=== PATIENT | female | born 1930 | race Caucasian/White ===

== ENCOUNTER 2017-10-21 19:04 | Inpatient (IN) | payer MEDICARE, MEDICAID ==
[~2017-10-21] VITALS: Ht 157.5 cm; Wt 68.0 kg
[~2017-10-21 19:04] MED LIST: ACET100V5 PO; ACID1TAB4 PO; Acetaminophen PO; CRAN450T9 PO; Docusate Sodium PO; FERR325T28 PO; Folic Acid PO; LEVO500T2 PO; MAGN400O6 PO; MENT71OI TOP; METO25TA6 PO; METR500T PO; MULT1TAB73 PO; NA P133E RC; ONDA4TAB5 PO; PANT40TA2 PO; POTA-10 PO; SERT50TA PO; TRAZ-144 PO
[2017-10-21 20:20] LABS: BASOPHILS # (AUTO) 0.1 K/uL (0.0-8.0); BASOPHILS % (AUTO) 0.5 % (0.0-2.0); EOSINOPHILS # (AUTO) 0.1 K/uL (0.0-0.7); EOSINOPHILS % (AUTO) 0.8 % (0.0-7.0); HEMATOCRIT 35.9 % (31.2-41.9); HEMOGLOBIN 11.9 g/dL (10.9-14.3); LYMPHOCYTES # (AUTO) 1.4 K/uL (20.0-40.0); LYMPHOCYTES % (AUTO) 9.1 % (20.5-51.5); MEAN CORPUSCULAR HEMOGLOBIN 25.6 uug (24.7-32.8); MEAN CORPUSCULAR HGB CONC 33 g/dL (32.3-35.6); MEAN CORPUSCULAR VOLUME 77.1 fL (75.5-95.3); MONOCYTES # (AUTO) 0.6 K/uL (2.0-10.0); MONOCYTES % (AUTO) 4.3 % (0.0-11.0); NEUTROPHILS # (AUTO) 12.8 K/uL (1.8-8.9); NEUTROPHILS % (AUTO) 85.3 % (38.5-71.5); PLATELET COUNT (AUTO) 168 K/uL (179-408); RED BLOOD CELL COUNT(AUTO) 4.66 MIL/uL (3.63-4.92)
[2017-10-21 20:41] LABS: ALANINE AMINOTRANSFERASE 11 U/L (14-59); ALKALINE PHOSPHATASE 121 U/L (50-136); ASPARTATE AMINOTRANSFERASE 15 U/L (15-37); BILIRUBIN,TOTAL 0.4 mg/dL (0.2-1.0); CARBON DIOXIDE 26 mmol/L (21-32); CHLORIDE 101 mmol/L (98-107); CREATININE 1.2 mg/dL (0.6-1.3); GLUCOSE 132 mg/dL (74-106); POTASSIUM 3.6 mmol/L (3.5-5.1); TOTAL PROTEIN, SERUM 6.7 g/dL (6.4-8.2)
[2017-10-21 20:50] LABS: UREA NITROGEN, BLOOD 7 mg/dL (7-18)
[2017-10-21] MEDS ORDERED: DOCU100C36 PO (21:00)
[2017-10-21] MEDS ORDERED: HYOS0.1273 PO (21:00)
[2017-10-21] MEDS ORDERED: AMLO5TAB2 PO (21:00)
[2017-10-21] MEDS ORDERED: ONDA4TAB5 PO (21:00)
[2017-10-21] MEDS ORDERED: LORA-258 PO (21:00)
[2017-10-21] MEDS ORDERED: OMEP20CA10 PO (21:00)
[2017-10-21] MEDS ORDERED: TRAZ-144 PO (21:00)
[2017-10-21] MEDS ORDERED: METO25TA6 PO (21:00)
[2017-10-21] MEDS ORDERED: MORPHINE SULFATE PO (21:00)
[2017-10-21] MEDS ORDERED: SERT25TA PO (21:00)
[2017-10-21] MEDS ORDERED: ACET325T53 PO (21:00)
[2017-10-21] MEDS ORDERED: HYDR-3026 PO (21:00)
[2017-10-21] MEDS ORDERED: LOPE-156 PO (21:00)
[2017-10-21] MEDS ORDERED: LORA0.5T48 PO (21:00)
[2017-10-21 21:50] LABS: *CLARITY,URINE TURBID (CLEAR)
[2017-10-21 21:51] LABS: *BILIRUBIN,URIN NEGATIVE (NEGATIVE); *BLOOD, URINE 2+ (NEGATIVE); *COLOR,URINE YELLOW (YELLOW); *KETONES,URINE NEGATIVE (NEGATIVE); *PROTEIN,URINE 2+ (NEGATIVE); *UROBILINOGEN,URINE 0.2 E.U./dl (NORMAL); LEUKOCYTE ESTERASE ,URINE 3+ (NEGATIVE); NITRITE, URINE POSITIVE (NEGATIVE); UGLUCOSE NEGATIVE (NEGATIVE)
--- NOTE | 2017-10-21 21:55 | NUR ---
Passed report to Fernando Elizalde.
[2017-10-21 21:56] LABS: BACTERIA,URINE MANY /HPF (NONE SEEN); SQUAMOUS EPITHELIAL CELL,UR MANY /HPF (NONE SEEN); WBC,URINE TNTC /HPF (0-3)
[2017-10-21] MEDS ORDERED: CEFTRIAXONE 1 G in IV DEXTROSE 5% 50 ML IV ONE (22:04)
[2017-10-21] MEDS ORDERED: CEFTRIAXONE 1 G VIAL ONE (22:25)
[2017-10-21] MEDS ORDERED: LORAZEPAM 0.5 MG TABLET PO PRN (22:45)
--- NOTE | 2017-10-22 | NUR ---
RECEIVED PATIENT VIA GURNEY FROM ER. PATIENT IS A/O X3. [place] SPEAKING BUT ABLE TO MAKE SIMPLE NEEDS KNOWN. DENIES PAIN OR DISCOMFORT. NO RESP. DISTRESS NOTED. ORIENTED TO ROOM AND CALL LIGHT. BED ALARM ON. CALL LIGHT IN REACH. ALL NEEDS ATTENDED.
[2017-10-22] MEDS ORDERED: HYDROCODONE/APAP 5-325MG TABLET PO PRN (00:15)
[2017-10-22] MEDS ORDERED: ONDANSETRON 4 MG/2 ML VIAL IV PRN (00:15)
[2017-10-22] MEDS ORDERED: ACETAMINOPHEN 325 MG TABLET PO PRN (00:15)
[2017-10-22] MEDS ORDERED: AMLODIPINE 5 MG TABLET PO ONE (00:15)
[2017-10-22] MEDS ORDERED: Z GUARD REMEDY PASTE 57 GM TUBE TOP PRN (00:15)
[2017-10-22] MEDS: IV NS 1000 ML 1,000 ML IV PRN ×2 (00:27→20:05)
[2017-10-22] MEDS ORDERED: diphenhydrAMINE 50 MG/1 ML VIAL IV PRN (00:30)
[2017-10-22 00:32] VITALS: BP 152/70
[2017-10-22 04:59] VITALS: BP 109/55
--- NOTE | 2017-10-22 07:30 | NUR ---
Received report from shift nurse manager nurse, patient in bed awake, no evidence of distress noted at this time, bed in low postion, side rails up x2. Bed alarm on.
[2017-10-22] MEDS: SERTRALINE HCL 50 MG TABLET PO SCH (09:48)
[2017-10-22] MEDS: METOPROLOL TARTRATE 25 MG TABLET PO SCH ×2 (09:48→20:12)
[2017-10-22] MEDS: AMLODIPINE 5 MG TABLET PO SCH ×2 (09:48→20:12)
[2017-10-22] MEDS: ENOXAPARIN SODIUM 40 MG/0.4 ML DISP.SYRIN SQ SCH (09:49)
[2017-10-22 10:26] LABS: CARBON DIOXIDE 27 mmol/L (21-32); CHLORIDE 108 mmol/L (98-107); CREATININE 1.2 mg/dL (0.6-1.3); GLUCOSE 123 mg/dL (74-106); POTASSIUM 3.6 mmol/L (3.5-5.1); UREA NITROGEN, BLOOD 6 mg/dL (7-18)
[2017-10-22 10:28] LABS: BASOPHILS # (AUTO) 0.1 K/uL (0.0-8.0); EOSINOPHILS # (AUTO) 0.1 K/uL (0.0-0.7); EOSINOPHILS % (AUTO) 1.3 % (0.0-7.0); HEMATOCRIT 33.3 % (31.2-41.9); HEMOGLOBIN 11.2 g/dL (10.9-14.3); LYMPHOCYTES # (AUTO) 1.6 K/uL (20.0-40.0); LYMPHOCYTES % (AUTO) 18.8 % (20.5-51.5); MEAN CORPUSCULAR HGB CONC 34 g/dL (32.3-35.6); MEAN CORPUSCULAR VOLUME 77.3 fL (75.5-95.3); MONOCYTES # (AUTO) 0.4 K/uL (2.0-10.0); MONOCYTES % (AUTO) 4.1 % (0.0-11.0); NEUTROPHILS # (AUTO) 6.5 K/uL (1.8-8.9); NEUTROPHILS % (AUTO) 74.8 % (38.5-71.5); PLATELET COUNT (AUTO) 141 K/uL (179-408); RED BLOOD CELL COUNT(AUTO) 4.31 MIL/uL (3.63-4.92); WHITE BLOOD COUNT (AUTO) 8.7 K/uL (3.8-11.8)
[2017-10-22 11:52] VITALS: BP 132/68
[2017-10-22 15:58] VITALS: BP 124/53
--- NOTE | 2017-10-22 17:00 | NUR ---
Contacted Lisandra Guzman about the patients lack of appetite, order received for clear ensure as patient doesn't tolerate lactose.
--- NOTE | 2017-10-22 18:56 | NUR ---
Patient has been cooperative with care, had a large BM, and is currently awake in bed, no evidence of distress at this time. Bed in low position, side rails up x2, all needs met.
--- NOTE | 2017-10-22 19:10 | NUR ---
Awake during initial rounds. Denies any pain at this time but requested to be change due to B & B incontinence. Good skin/sofia care rendered. Able to assist with ADL's. Made comfortable in bed. Continue care as planned.
[2017-10-22] MEDS: CEFTRIAXONE 1 G in IV DEXTROSE 5% 50 ML IV SCH (20:02)
[2017-10-22] MEDS: DOCUSATE SODIUM 100 MG CAPSULE PO SCH (20:11)
[2017-10-22] MEDS: LORAZEPAM 0.5 MG TABLET PO SCH (20:12)
[2017-10-22] MEDS: TRAZODONE 50 MG TABLET PO SCH (20:13)
[2017-10-22 20:53] VITALS: BP 138/63
--- NOTE | 2017-10-23 06:01 | NUR ---
Slept well. No complaint presented throughout the night. All needs attended and met. Continue current plan of care.
[2017-10-23 06:27] LABS: BASOPHILS % (AUTO) 0.6 % (0.0-2.0); EOSINOPHILS # (AUTO) 0.2 K/uL (0.0-0.7); EOSINOPHILS % (AUTO) 2.9 % (0.0-7.0); HEMATOCRIT 36.6 % (31.2-41.9); HEMOGLOBIN 12.2 g/dL (10.9-14.3); LYMPHOCYTES # (AUTO) 2.2 K/uL (20.0-40.0); MEAN CORPUSCULAR HEMOGLOBIN 25.6 uug (24.7-32.8); MEAN CORPUSCULAR HGB CONC 33 g/dL (32.3-35.6); MEAN CORPUSCULAR VOLUME 76.6 fL (75.5-95.3); MONOCYTES # (AUTO) 0.4 K/uL (2.0-10.0); MONOCYTES % (AUTO) 5.2 % (0.0-11.0); NEUTROPHILS # (AUTO) 4.5 K/uL (1.8-8.9); NEUTROPHILS % (AUTO) 61.3 % (38.5-71.5); PLATELET COUNT (AUTO) 161 K/uL (179-408); RED BLOOD CELL COUNT(AUTO) 4.78 MIL/uL (3.63-4.92); WHITE BLOOD COUNT (AUTO) 7.4 K/uL (3.8-11.8)
[2017-10-23 06:38] LABS: CARBON DIOXIDE 29 mmol/L (21-32); CHLORIDE 108 mmol/L (98-107); CHOLESTEROL 116 mg/dL (<200); CREATININE 1.1 mg/dL (0.6-1.3); GLUCOSE 106 mg/dL (74-106); HDL CHOLESTEROL 32 mg/dL (40-60); MAGNESIUM 1.8 mg/dL (1.8-2.4); PHOSPHOROUS 3.5 mg/dL (2.5-4.9); POTASSIUM 3.7 mmol/L (3.5-5.1); TRIGLYCERIDES 133 MG/DL (30-150); UREA NITROGEN, BLOOD 6 mg/dL (7-18)
[2017-10-23 06:59] VITALS: BP 136/60
--- NOTE | 2017-10-23 07:45 | NUR ---
RECEIVED PATIENT IN BED AWAKE ALERT AND ORIENTED ABLE TO MAKE NEEDS KNOWN AT THIS TIME BUT REQUIRES ASSIST FOR ALL ADL.SHE IS ON ROOM AIR WITH NO SHORTNESS OF BREATH AT THIS TIME.REMAIN ON IVF ORDERED WITH NO S/S OF INFILTERATION ON SITE.ASSITED WITH REPOSITIONING Q2H.MADE COMFORTABLE NOT IN DISTRESS AT THIS TIME.
[2017-10-23] MEDS: SERTRALINE HCL 50 MG TABLET PO SCH (08:26)
[2017-10-23] MEDS: METOPROLOL TARTRATE 25 MG TABLET PO SCH ×2 (08:27→20:09)
[2017-10-23] MEDS: AMLODIPINE 5 MG TABLET PO SCH ×2 (08:27→20:07)
[2017-10-23] MEDS: ENOXAPARIN SODIUM 40 MG/0.4 ML DISP.SYRIN SQ SCH (08:34)
[2017-10-23] MEDS ORDERED: CEPH-570 PO (09:10)
[2017-10-23 11:28] VITALS: BP 131/53
--- NOTE | 2017-10-23 13:01 | NUR ---
PATIENT SEEN AND EXAMINED BY RAMSEY CADENA WITH NEW ORDERS AND NOTED.
[2017-10-23] MEDS: IV NS 1000 ML 1,000 ML IV PRN (14:45)
[2017-10-23 15:46] VITALS: BP 137/60
--- NOTE | 2017-10-23 18:00 | NUR ---
PATIENT REMAINS ON IVF ORDERED WITH NO S/S OF INFILTERATION AT THIS TIME.TURNED AND REPOSITIONED Q2H WITH INCONTINENT CARE MADE COMFORTABLE AND WILL CONTINUE TO OBSERVE.
--- NOTE | 2017-10-23 19:25 | NUR ---
PT LYING IN BED. AWAKE AND ALERT. ABLE TO UNDERSTAND SOME GREEK. MAINLY [place] SPEAKING. DENIES ANY PAIN OR DISCOMFORT. LEFT FOREARM IV SITE INTACT. IVF INFUSING. SAFETY INITIATED. CALL LIGHT WITHIN REACHED. WILL CONTINUE TO MONITOR.
[2017-10-23 20:00] VITALS: BP 150/78
[2017-10-23] MEDS: DOCUSATE SODIUM 100 MG CAPSULE PO SCH (20:06)
[2017-10-23] MEDS: LORAZEPAM 0.5 MG TABLET PO SCH (20:09)
[2017-10-23] MEDS: CEFTRIAXONE 1 G in IV DEXTROSE 5% 50 ML IV SCH (20:09)
[2017-10-23] MEDS: TRAZODONE 50 MG TABLET PO SCH (20:09)
[2017-10-23] MEDS: Z GUARD REMEDY PASTE 57 GM TUBE TOP SCH (21:19)
[2017-10-24 04:30] VITALS: BP 147/67
--- NOTE | 2017-10-24 05:30 | NUR ---
PATIENT AXO. SPEAKS MOSTLY MALAYSIAN. CAN UNDERSTAND SOME [place]. DENIES ANY PAIN OR SOB. NOT IN ACUTE DISTRESS. VS STABLE. O2 SAT AT 96% ON RA. IV SITE ON LEFT FOREARM INTACT AND PATENT. IV INFUSING. INCONTINENT OF BOTH BOWEL AND BLADDER FUNCTION AND WEARS DIAPER. SAFETY AND COMFORT MEASURE MAINTAINED. REPOSITIONED EVERY 2 HOURS.
[2017-10-24 06:23] LABS: BASOPHILS # (AUTO) 0.1 K/uL (0.0-8.0); BASOPHILS % (AUTO) 0.8 % (0.0-2.0); EOSINOPHILS # (AUTO) 0.3 K/uL (0.0-0.7); EOSINOPHILS % (AUTO) 4.1 % (0.0-7.0); HEMATOCRIT 36.8 % (31.2-41.9); HEMOGLOBIN 12.4 g/dL (10.9-14.3); LYMPHOCYTES # (AUTO) 2.3 K/uL (20.0-40.0); LYMPHOCYTES % (AUTO) 32.1 % (20.5-51.5); MEAN CORPUSCULAR HEMOGLOBIN 25.9 uug (24.7-32.8); MEAN CORPUSCULAR HGB CONC 34 g/dL (32.3-35.6); MEAN CORPUSCULAR VOLUME 76.9 fL (75.5-95.3); MONOCYTES # (AUTO) 0.4 K/uL (2.0-10.0); MONOCYTES % (AUTO) 5.7 % (0.0-11.0); NEUTROPHILS # (AUTO) 4.2 K/uL (1.8-8.9); NEUTROPHILS % (AUTO) 57.3 % (38.5-71.5); PLATELET COUNT (AUTO) 169 K/uL (179-408); RED BLOOD CELL COUNT(AUTO) 4.78 MIL/uL (3.63-4.92); WHITE BLOOD COUNT (AUTO) 7.3 K/uL (3.8-11.8)
[2017-10-24 06:34] LABS: CARBON DIOXIDE 25 mmol/L (21-32); CHLORIDE 106 mmol/L (98-107); GLUCOSE 108 mg/dL (74-106); MAGNESIUM 1.8 mg/dL (1.8-2.4); PHOSPHOROUS 3.4 mg/dL (2.5-4.9); POTASSIUM 3.1 mmol/L (3.5-5.1); UREA NITROGEN, BLOOD 3 mg/dL (7-18)
--- NOTE | 2017-10-24 07:30 | NUR ---
PATIENT IS AWAKE ALERT AND AWARE FORGETFUL AT TIMES ABLE TO MAKE NEEDS KNOWN REMAIN ON IBF ORDERED WITH NO S/S OF INFILTERATION IV ANTIBIOTICS IN PROGRESS ORDERED WITH NO S/S OF ADVERSE OR ALLERGIC REACTIONS AT THIS TIME.MADE COMFORTABLE AND WILL CONTINUE TO OBSERVE.
[2017-10-24] MEDS: SERTRALINE HCL 50 MG TABLET PO SCH (08:28)
[2017-10-24] MEDS: AMLODIPINE 5 MG TABLET PO SCH (08:29)
[2017-10-24] MEDS: METOPROLOL TARTRATE 25 MG TABLET PO SCH (08:29)
[2017-10-24] MEDS: Z GUARD REMEDY PASTE 57 GM TUBE TOP SCH (08:31)
[2017-10-24] MEDS: ENOXAPARIN SODIUM 40 MG/0.4 ML DISP.SYRIN SQ SCH (09:25)
[2017-10-24 11:12] VITALS: BP 142/65
[2017-10-24] MEDS ORDERED: LEVOFLOXACIN 500 MG TABLET PO SCH (11:15)
[2017-10-24] MEDS ORDERED: LEVOFLOXACIN 500 MG TABLET PO ONE (11:15)
--- NOTE | 2017-10-24 11:16 | NUR ---
PATIENT SEEN AND EXAMINED BY DR GIBBONS WITH ORDER TO DISCHARGE PATIENT TO SNF TODAY WILL AWAIT FOR THE CASE MANAGEMENT FOR APPROAVAL.
[2017-10-24] MEDS ORDERED: POTASSIUM CHLORIDE 20 MEQ TAB.PRT.SR PO ONE (11:30)
--- NOTE | 2017-10-24 12:57 | NUR ---
SKIN CARE CONSULTANT STATED THAT IT WAS OKAY FOR PATIENT TO BE DISCHARGED WILL PREPARE THE DISCHARGE PAPERWORK
[2017-10-24 15:08] VITALS: BP 135/64
--- NOTE | 2017-10-24 16:20 | NUR ---
PATIENT DISCHARGED PICKED UP BY [facility] IN SATISFACTORY CONDITION WITH DISCHARGE INSTRUCTIONS PATIENTS DAUGHTER AWARE OF DISCHARGE.
[2017-10-25] MEDS ORDERED: LEVOFLOXACIN 250 MG TABLET PO SCH (09:00)
== END 2017-10-24 16:20 | DRG 872 ==
LOC: ER 19:08 → MED 23:20
PROVIDERS: ADMIT Nurse Practitioner Acute Care; ATTEND Nurse Practitioner Acute Care
DX: A41.9 Sepsis, unspecified organism (principal); D68.59 Other primary thrombophilia; G30.9 Alzheimer's disease, unspecified; F02.80 Dementia in other diseases classified elsewhere, unspecified severity, without behavioral disturbance, psychotic disturbance, mood disturbance, and anxiety; N39.0 Urinary tract infection, site not specified; E44.1 Mild protein-calorie malnutrition; E87.1 Hypo-osmolality and hyponatremia; B96.20 Unspecified Escherichia coli [E. coli] as the cause of diseases classified elsewhere; Z16.11 Resistance to penicillins; Z68.27 Body mass index [BMI] 27.0-27.9, adult; Z66 Do not resuscitate; F32.9 Major depressive disorder, single episode, unspecified; M81.0 Age-related osteoporosis without current pathological fracture; I10 Essential (primary) hypertension; Z74.09 Other reduced mobility; Z79.899 Other long term (current) drug therapy; Z87.891 Personal history of nicotine dependence; Z90.49 Acquired absence of other specified parts of digestive tract; Z88.0 Allergy status to penicillin; Z88.2 Allergy status to sulfonamides; Z88.8 Allergy status to other drugs, medicaments and biological substances; M19.90 Unspecified osteoarthritis, unspecified site; Z74.01 Bed confinement status; R19.7 Diarrhea, unspecified
CPT/HCPCS: 36415; 83735; 84100; 85025; 86625; 87046; 87077; 87086; 89055; A4663; C1758; J0696; J1200; J1650; J7030; J7060